=== PATIENT | female | born 2000 | race American Indian/Alaskan Native ===

== ENCOUNTER 2020-12-15 16:45 | Emergency (ER) | payer OTHER ==
[2020-12-15 16:57] VITALS: BP 117/75
[2020-12-15] MEDS ORDERED: CYCLOBENZAPRINE 10 MG TAB PO ONE (17:03)
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
== END 2020-12-15 18:41 | disposition home or self-care (01) ==
LOC: ED 16:45
DX: M62.838 Other muscle spasm (principal); Z79.899 Other long term (current) drug therapy; V49.59XA Passenger injured in collision with other motor vehicles in traffic accident, initial encounter; Y92.410 Unspecified street and highway as the place of occurrence of the external cause; Y93.89 Activity, other specified; Y99.8 Other external cause status
CPT/HCPCS: 99282